=== PATIENT | female | born 1980 | race Caucasian/White ===

== ENCOUNTER 2019-09-24 22:15 | Emergency (ER) | payer MEDICAID, SELFPAY ==
[2019-09-24 22:17] VITALS: BP 187/108; PULSE 65; RESP 14; TEMP 36.1; O2SAT 100; BMI 24.8
--- NOTE | 2019-09-24 22:24 | EKG12_ITS ---
Test Reason : DIZZY Blood Pressure : / mmHG Vent. Rate : 062 BPM Atrial Rate : 062 BPM P-R Int : 148 ms QRS Dur : 104 ms QT Int : 464 ms P-R-T Axes : 263 037 061 degrees QTc Int : 470 ms Ectopic Atrial Rhythm Abnormal ECG Confirmed by CRISTIANO SMITH, LUNA ([id number]), editor magazine CINDY SHEPPARD ([id number]) on 09/28/2019 9:49:18 AM Referred By: APRIL Confirmed By:WILLIAM QUINONEZ MD
--- NOTE | 2019-09-24 22:26 | ED.RN ---
NO OLD EKGS IN MUSE
--- NOTE | 2019-09-24 22:27 | ED.VIS.GEN ---
History of Present Illness Chief Complaint: Dizziness Informant: Patient Onset: Today Context: Gradual Onset Timing: Continuous Current Severity: Moderate Maximum Severity: Moderate Narrative: The patient is an otherwise healthy 39-year-old female with history of methamphetamine dependence who has been sober since September 02 who presents to the emergency department with elevated blood pressure, dizziness, and nausea and vomiting. The patient states that she was in a meeting today. She states she got lightheaded and felt like she was sick to her stomach. She states that she felt near syncopal. She felt like she was going to pass out. She had one episode of emesis. The patient does have a history of antiphospholipid antibody syndrome. She is on Xarelto and has been compliant with this. She denies any change in bowel habits. She denies any bright red blood per rectum. She denies any other systemic complaints. Prior similar symptoms: No Recent Illness/Hospitalization: No Past Medical History - Allergies and Home Meds Allergies/Adverse Reactions: Allergies tetanus and diphtheria toxoids Allergy (Verified 09/24/19 22:17) Swelling ciprofloxacin Adverse Reaction (Verified 09/24/19 22:17) Hives morphine Adverse Reaction (Verified 09/24/19 22:17) Hives Primary Care Physician: Augie Pastrana MD [Primary Care Provider] - Prior records reviewed: Yes Past Medical History: - - Antiphospholipid antibody syndrome Surgical History: noncontributory Smoking Status: Current every day smoker Review of Systems General: Denies: Chills, Fever, Sweats Eyes: Denies: Visual changes - bilaterally, Diplopia ENT: Denies: Rhinorrhea, Sore throat Cardiovascular: Denies: Chest pain, Palpitations Respiratory: Denies: Dyspnea, Cough, Dyspnea on exertion Gastrointestinal: Reports: Nausea, Vomiting. Denies: Abdominal pain, Diarrhea, Melena, Hematochezia Genitourinary: Denies: Dysuria, Hematuria, Frequency Musculoskeletal: Denies: Back pain, Extremity Pain Skin: Denies: Rash, Wounds Neurological: Reports: Headache. Denies: Weakness, Numbness Physical Exam Vital Signs/Narrative: Vital Signs Temp Pulse Resp BP Pulse Ox 09/24/19 22:17 96.9 F L 65 14 187/108 H 100 Inital Vital Signs reviewed: Yes General: Well nourished, Well developed, No Acute Distress Head: Normocephalic, Atraumatic Eyes: Perrl, EOMI ENT: Moist mucous membranes, No rhinorrhea Neck: Supple, Nontender Cardiovascular: Regular rate, Regular rhythm, No murmurs Respiratory: No distress, CTA bilaterally, Chest nontender Abdomen: Soft, Nontender, Nondistended, Normal bowel sounds Back: Nontender, Normal Inspection Extremities: Nontender, No edema Skin: Normal color, No rash Neurological: Alert, Oriented x3, Cranial nerves II-XII grossly intact, Normal Strength, Normal Sensation Psychological: Normal affect, Normal Mood Diagnostic/Tx/Re-eval Clinical Impression(s) from Imaging Studies Brain CT 09/24/19 22:29 IMPRESSION: Normal. ASPECT 10. Individualized dose optimization techniques were used for this CT. at 2325 Reported and signed by: Edd Lua MD Electronically Signed: Edd Lua MD at 23:24 EST Tel , Service support , Abnormal Lab Results 09/24/19 09/24/19 09/24/19 22:40 22:40 22:50 WBC 6.5 RBC 4.85 Hgb 12.8 Hct 39.4 MCV 81.2 MCH 26.4 L MCHC 32.5 RDW Std Deviation 39.3 RDW Coeff of Kristen 13.2 Plt Count 170 MPV 11.3 Immature Gran % (Auto) 0.300 Neut % (Auto) 52.6 Lymph % (Auto) 34.8 [place] % (Auto) 8.3 Eos % (Auto) 3.4 Baso % (Auto) 0.6 Absolute Neuts (auto) 3.4 Absolute Lymphs (auto) 2.27 Nucleated RBC % 0 Sodium 137 Potassium 4.1 Chloride 105 Carbon Dioxide 28.0 Anion Gap 4 L BUN 17 Creatinine 1.11 H Estim Creat Clear Calc 70.41 Est GFR (MDRD) Af Amer 70 Est GFR (MDRD) Non-Af 58 L BUN/Creatinine Ratio 15.3 Glucose 91 Calcium 9.0 Total Bilirubin 0.40 AST 15 ALT 24 Alkaline Phosphatase 94 Total Protein 7.4 Albumin 3.5 Globulin 3.9 Albumin/Globulin Ratio 0.9 Urine Color Yellow Urine Clarity Sl. Cloudy Urine pH 6.5 Ur Specific [place] 1.010 Urine Protein 15 H Urine Glucose (UA) Normal Urine Ketones Negative Urine Occult Blood Negative Urine Nitrite Negative Urine Bilirubin Negative Urine Urobilinogen Normal Ur Leukocyte Esterase 25 H Urine RBC 0 SEEN Urine WBC 0-5 SEEN Ur Squamous Epith Cells 0-5 SEEN Urine Bacteria 0 SEEN Urine Mucus 0 SEEN - Rhythm Strip Rhythm Strip: Sinus Rhythm Rate: 80 Ectopy: None - EKG Initial EKG Interpretation: Sinus Rhythm, No Acute Injury Pattern Prior: No Prior - Medical Decision Making The patient presents to the emergency department after near syncopal episode. She is complaining of mild headache. EKG was obtained which showed sinus rhythm. There was ectopic atrial beats, but no evidence of WPW or dysrhythmia. Patient was given fluids and Zofran with improvement. She still had a mild headache and was given Tylenol. Screening labs are unremarkable. Noncontrast head CT was negative. The patient has no evidence of anemia or other infectious process. At this point, her symptoms do seem vasovagal in nature. I do not suspect a dangerous process. I do feel that she is safe for outpatient follow-up. She is agreeable with this plan of care. Impression 1. Vasovagal near syncope ED Disposition - Plan for ED Patient: Instructions: NEAR SYNCOPE, Vasovagal Prescriptions: Ondansetron [Zofran Odt] 4 mg PO Q8H PRN PRN #10 tab PRN Reason: Nausea Prescription Printed Referrals: Augie Pastrana MD [Primary Care Provider] -
--- NOTE | 2019-09-24 22:29 | CT_ITS ---
HISTORY: NAUSEA, DIZZINESS, HTN SINCE 1900 TECHNIQUE: Multiple axial images were obtained of the brain without intravenous contrast. A radiation dose optimization technique was used for this scan. COMPARISON: None FINDINGS: # of images incl. paperwork: 230 Visualized portions of the paranasal sinuses and mastoid air cells are free of disease. Brain volume is normal. Hernández-white differentiation is preserved. No hydrocephalus. No acute ischemia. No acute intracranial hemorrhage. CT/Brain/Head without Contrast IMPRESSION: Normal. ASPECT 10. Individualized dose optimization techniques were used for this CT. at 2321 Reported and signed by: Edd Lua MD Electronically Signed: Edd Lua MD at 23:24 EST Tel , Service support ,
[2019-09-24] MEDS: 0.9% Normal Saline 1,000 ML 1000 ML IV (22:46)
[2019-09-24] MEDS: Ondansetron 4 MG/2 ML Vial IV (22:46)
[2019-09-24 22:52] LABS: Absolute Lymphocyte Count 2.27 X10^3/uL (0.83-4.51); Absolute Neutrophil Count 3.4 X10^3/uL (2.0-7.7); Basophil# 0.04 X10^3/uL; Basophil% 0.6 % (0-1); Eosinophil# 0.22 X10^3/uL; Eosinophils% 3.4 % (0-5); Hematocrit 39.4 % (37-47); Hemoglobin 12.8 g/dL (12.0-15.0); Lymphocyte # 2.27 X10^3/ul (4.0); Lymphocyte % 34.8 % (19-41); Mean Corp Hgb Conc 32.5 g/dL (32-36); Mean Corpuscular Hgb 26.4 pg (27.0-32.0); Mean Corpuscular Volume 81.2 fL (81-99); Mean Platelet Vol. 11.3 fl (6.2-12.0); Monocyte# 0.54 X10^3/uL; Monocyte% 8.3 % (0-10); NRBC Flagged by Analyzer 0 % (0-5); Neutrophil # 3.43 X10^3/uL (2.7-7.7); Neutrophil % 52.6 % (47-70); Platelet Count 170 K/mm3 (150-450); RBC Distribution Width CV 13.2 % (11.6-14.6); RBC Distribution Width SD 39.3 fl (35.1-43.9); Red Blood Count 4.85 M/mm3 (4.2-5.4); White Blood Count 6.5 K/mm3 (4.4-11.0)
[2019-09-24 22:56] LABS: Bacteria 0 SEEN /hpf (None Seen); Mucous, Urine 0 SEEN /hpf (<or=2+); Red Blood Cells-Urine 0 SEEN /hpf (0-5)
[2019-09-24 23:07] LABS: Color, Urine Yellow (Yellow); Glucose, Dipstick Normal (Normal); Ketone-Dipstick Negative (Negative); Leukocyte Esterase-Dipstick 25 /ul (Negative); Nitrite-Dipstick Negative (Negative); Occult Blood-Urine Negative /ul (Negative); Protein-Dipstick 15 mg/dl (Negative); Urine Bilirubin Dipstick Negative (Negative); Urine Clarity Sl. Cloudy (Clear); Urine Urobilinogen Normal (Normal); Urine pH 6.5 (5.0 - 8.0)
[2019-09-24 23:13] LABS: Squamous Epithelial Cells - UA 0-5 SEEN /hpf (5-10); White Blood Cells 0-5 SEEN /hpf (0-5)
[2019-09-24 23:19] LABS: ALB/GLOB Ratio 0.9 RATIO (0.9-2.4); AST(SGOT) 15 U/L (15-37); Alanine Aminotransfer ALT/SGPT 24 U/L (13-56); Albumin, Serum 3.5 g/dL (3.2-5.0); Alkaline Phosphatase 94 U/L (45-117); Anion Gap 4 (5-15); BUN 17 mg/dL (7-18); BUN/Creat Ratio 15.3 RATIO (10-20); Chloride 105 mmol/L (98-107); Creatinine, Serum 1.11 mg/dL (0.55-1.02); EST Glomerular Filtration Rate 58 mL/min (>60); Est Glom Filt Rate - Afr Amer 70 mL/min (>60); Estimated Creatinine Clearance 70.41 ml/min; Globulin 3.9 g/dL (2.2-4.2); Glucose 91 mg/dL (74-106); Potassium 4.1 mmol/L (3.5-5.1); Protein, Total 7.4 g/dL (6.4-8.2); Sodium Level 137 mmol/L (136-145)
[2019-09-24] MEDS: Acetaminophen 500 MG Tablet 1000 MG PO (23:45)
[2019-09-24 23:47] VITALS: BP 162/97; PULSE 91; RESP 18; O2SAT 96
== END 2019-09-24 23:49 | disposition home or self-care (01) ==
LOC: ED 23:10
PROVIDERS: Emergency Provider Emergency Medicine; Family Provider Family Medicine; PCP Family Medicine
DX: R55 Syncope and collapse (principal); I10 Essential (primary) hypertension; D68.61 Antiphospholipid syndrome; R11.2 Nausea with vomiting, unspecified; R42 Dizziness and giddiness; F17.200 Nicotine dependence, unspecified, uncomplicated; Z79.01 Long term (current) use of anticoagulants; Z79.899 Other long term (current) drug therapy; Z88.1 Allergy status to other antibiotic agents
CPT/HCPCS: 70450; 80053; 81001; 85025; 93005; 96361; 96374; 99285; J7030; A4216; J2405